=== PATIENT | female | born 1980 | race African-American/Black ===

== ENCOUNTER 2021-05-10 13:06 | Emergency (ER) | payer SELFPAY ==
[~2021-05-10] VITALS: Ht 182.9 cm; Wt 105.0 kg
[2021-05-10] MEDS ORDERED: IBUP-2437 PO (13:10)
[2021-05-10] MEDS ORDERED: MAGNESIUM/ALUMINUM HYDROXIDE/SIMETHICONE 30ML UDC PO STA (13:42)
[2021-05-10] MEDS ORDERED: VISCOUS LIDOCAINE 2% 15 ML UDC PO STA (13:42)
[2021-05-10] MEDS ORDERED: PROT40 PO (13:52)
[2021-05-10 14:35] VITALS: BP 150/85
== END 2021-05-10 14:39 | disposition home or self-care (01) ==
LOC: ER 13:06
DX: R10.13 Epigastric pain (principal); R07.9 Chest pain, unspecified; F12.10 Cannabis abuse, uncomplicated; Z79.899 Other long term (current) drug therapy
CPT/HCPCS: 81025; 93005; 99283; Z7610